=== PATIENT | female | born 1980 | race Caucasian/White ===

== ENCOUNTER 2017-09-23 01:13 | Emergency (ER) | payer OTHER, BC ==
[~2017-09-23] VITALS: Ht 177.8 cm; Wt 140.3 kg
[2017-09-23 01:15] VITALS: BP 125/81
[2017-09-23 02:13] LABS: MCH 30.1 PG (29.0-34.0); MCV 91.3 FL (83-99); MEAN PLAT.VOLUME 8.8 uM^3 (9.5-12.4); PLATELET COUNT 311 K/uL (156-360); RBC DIS.WIDTH-CV 13.7 % (11.8-14.6); RBC DIS.WIDTH-SD 46.5 % (39-53); RED BLOOD COUNT 4.71 M/uL (3.80-5.20); WHITE BLOOD COUNT 6.2 K/uL (4.1-10.2)
[2017-09-23 02:24] LABS: CHLORIDE 107 mEq/L (99-109); POTASSIUM 3.6 mEq/L (3.7-5.4); SODIUM 141 mEq/L (136-147)
[2017-09-23 02:26] LABS: GLUCOSE 122 mg/dL (70-99)
[2017-09-23 02:27] LABS: ANION GAP 10 MEQ/L (2-14)
[2017-09-23 02:28] LABS: TOTAL BILIRUBIN 0.5 mg/dL (0.0-1.0)
[2017-09-23 02:29] LABS: ALKALINE PHOSPHATASE 73 IU/L (3-129)
[2017-09-23 02:30] LABS: GFR ESTIMATE (CALCULATED) > 59 mL/min/
[2017-09-23 02:31] LABS: UREA NITROGEN (BUN) 10 mg/dL (9-23)
[2017-09-23 02:38] LABS: QUANTITATIVE HCG < 4.0 MIU/ML
== END 2017-09-23 02:30 | disposition left against medical advice (07) ==
LOC: EME 01:13
DX: R11.10 Vomiting, unspecified (principal); Z53.21 Procedure and treatment not carried out due to patient leaving prior to being seen by health care provider
CPT/HCPCS: 80053; 81003; 84702; 85027

== ENCOUNTER 2018-02-17 14:08 | Emergency (ER) | payer OTHER ==
[~2018-02-17] VITALS: Ht 177.8 cm; Wt 142.9 kg
[2018-02-17] MEDS ORDERED: KEFLEX500 MG PO (19:12)
[2018-02-17] MEDS ORDERED: PERCOCET 7.51 TABLET PO (19:12)
[2018-02-17] MEDS ORDERED: MOTRIN800 MG PO (19:12)
[2018-02-17 19:15] VITALS: BP 130/85
== END 2018-02-17 19:15 | disposition home or self-care (01) ==
LOC: EME 14:08
DX: L03.115 Cellulitis of right lower limb (principal); R22.41 Localized swelling, mass and lump, right lower limb; Z98.890 Other specified postprocedural states; Z87.39 Personal history of other diseases of the musculoskeletal system and connective tissue; J45.909 Unspecified asthma, uncomplicated; H91.90 Unspecified hearing loss, unspecified ear; Z88.0 Allergy status to penicillin
CPT/HCPCS: 73564; 93971; 99281; 99285; J1885